=== PATIENT | female | born 1990 | race African-American/Black ===

== ENCOUNTER 2017-09-06 11:46 | Emergency (ER) | payer MEDICAID, OTHER ==
[~2017-09-06] VITALS: Ht 167.6 cm; Wt 105.0 kg
[~2017-09-06 11:46] MED LIST: PREN-142 PO
[2017-09-06 14:14] LABS: CLARITY URINE CLOUDY (CLEAR); COLOR URINE YELLOW (YELLOW); KETONES URINE TRACE (NEGATIVE); LEUKOCYTE ESTERASE URINE NEGATIVE (NEGATIVE); NITRITE URINE NEGATIVE (NEGATIVE); OCCULT BLOOD URINE 3+ (NEGATIVE); PROTEIN URINE NEGATIVE (NEGATIVE); SPECIFIC GRAVITY URINE 1.034 (1.005-1.030); UROBILINOGEN URINE 0.2 E.U./dL (0.2-1.0)
[2017-09-06 15:47] LABS: BASOPHILS % 0.8 % (0.0-2.0); EOSINOPHILS % 0.5 % (0.0-5.0); HEMATOCRIT. 34.3 % (36.0-48.0); HEMOGLOBIN. 11.9 g/dL (12.0-16.0); LYMPHOCYTES % 36.8 % (20.0-50.0); MEAN CORPUSCULAR HEMOGLOBIN 31.2 pg (28.0-32.0); MEAN CORPUSCULAR VOLUME 90.2 fL (81.0-99.0); MEAN PLATELET VOLUME 6.9 fl (7.4-10.4); MONOCYTES % 8.6 % (2.0-8.0); NEUTROPHILS % 53.3 % (40.0-76.0); PLATELET 309 x1000/uL (130-400); RED CELL DISTRIBUTION WIDTH 14.5 % (11.6-14.6)
[2017-09-06 15:51] LABS: CHLORIDE 110 mEq/L (98-107)
[2017-09-06 16:05] VITALS: BP 126/76
[2017-09-06 17:46] LABS: INR 1.1
== END 2017-09-06 17:23 | disposition left against medical advice (07) ==
LOC: ER 11:46
DX: R42 Dizziness and giddiness (principal); R53.1 Weakness; R06.02 Shortness of breath; G61.0 Guillain-Barre syndrome
CPT/HCPCS: 36415; 80048; 81003; 81025; 85025; 85379; 85610; 99284

== ENCOUNTER 2017-09-28 08:53 | Emergency (ER) | payer MEDICAID ==
[~2017-09-28] VITALS: Ht 165.1 cm; Wt 130.0 kg
[2017-09-28] MEDS ORDERED: BUPR100T5 PO (08:56)
[2017-09-28] MEDS ORDERED: FLUO10CA25 PO (08:56)
[2017-09-28] MEDS ORDERED: WARF-67 PO (09:03)
[2017-09-28] MEDS ORDERED: KETOROLAC 30MG/ML VIAL IV STA (09:14)
[2017-09-28] MEDS ORDERED: SODIUM CHLORIDE 0.9% 1,000 ML IV ONE (09:14)
[2017-09-28 10:22] LABS: BASOPHILS % 0.8 % (0.0-2.0); EOSINOPHILS % 1.4 % (0.0-5.0); HEMATOCRIT. 35.9 % (36.0-48.0); LYMPHOCYTES % 45.7 % (20.0-50.0); MEAN CORPUSCULAR HEMOGLOBIN 30.2 pg (28.0-32.0); MEAN CORPUSCULAR VOLUME 90.8 fL (81.0-99.0); MEAN PLATELET VOLUME 7.2 fl (7.4-10.4); MONOCYTES % 10.6 % (2.0-8.0); NEUTROPHILS % 41.5 % (40.0-76.0); PLATELET 240 x1000/uL (130-400); RED BLOOD CELL COUNT 3.96 mill/uL (4.2-5.4); RED CELL DISTRIBUTION WIDTH 14.2 % (11.6-14.6)
[2017-09-28 10:27] LABS: CHLORIDE 111 mEq/L (98-107)
[2017-09-28 10:28] LABS: D-DIMER 0.6 mg/L FEU (<0.50); INR 1.2
[2017-09-28 10:31] LABS: HCG SCREEN NEGATIVE
[2017-09-28] MEDS ORDERED: IOHEXOL-350 100 ML BOTTLE ONE (12:25)
[2017-09-28 14:45] VITALS: BP 119/80
== END 2017-09-28 14:45 | disposition home or self-care (01) ==
LOC: ER 08:58
DX: R07.9 Chest pain, unspecified (principal); M79.602 Pain in left arm; R06.02 Shortness of breath; R05 Cough; M79.89 Other specified soft tissue disorders; R53.1 Weakness; K76.0 Fatty (change of) liver, not elsewhere classified; F32.9 Major depressive disorder, single episode, unspecified; G61.0 Guillain-Barre syndrome; Z86.718 Personal history of other venous thrombosis and embolism; Z86.711 Personal history of pulmonary embolism; Z79.01 Long term (current) use of anticoagulants
CPT/HCPCS: 36415; 71045; 71275; 80053; 83880; 84484; 84703; 85025; 85379; 85610; 96361; 96374; 99285; J1885; J7030; J7040; Q9967; 93005